=== PATIENT | female | born 1975 | race African-American/Black ===

== ENCOUNTER → 2024-04-17 | Day surgery (SDC) | payer OTHER ==
[~2024-04-17] MED LIST: ACETAMINOPHEN-1 EAC4 PO; DEXAMETHASONE SOD PHOS INJ 4 MG/ML SDV ONE; FENTANYL CITRATE/PF 100MCG/2 ML INJ ONE; GLYCOPYRROLATE INJ 0.2 MG/ML VIAL ONE; LIDOCAINE HCL 2% LOCAL INJ 5 ML SDV VIAL INJ ONE; MIDAZOLAM HCL 2 MG/2 ML VIAL ONE; ONDANSETRON HCL INJ 2MG/ML 2ML 2 MG/ML VIAL ONE; PROPOFOL IV EMULSION 10 MG/ML 20 ML VIAL ONE; SEVOFLURANE INHAL SOLN 250 ML PEN BTL ONE
[2024-04-17] MEDS: LACTATED RINGER'S 1,000 ML ONE (06:47)
[2024-04-17] MEDS: METOCLOPRAMIDE HCL 10 MG/2ML VIAL ONE (08:11)
[2024-04-17 09:06] VITALS: BP 132/74; PULSE 72; RESP 17; O2SAT 99
== END | disposition home or self-care (01) ==
LOC: OR 05:58
PROVIDERS: ATTEND Plastic Surgery
DX: S62.637A Displaced fracture of distal phalanx of left little finger, initial encounter for closed fracture (principal); X58.XXXA Exposure to other specified factors, initial encounter; E66.01 Morbid (severe) obesity due to excess calories
CPT/HCPCS: 26236; 88304; 88311; J0690; J1100; J2003; J2250; J2405; J2704; J2765; J3010; J7121